=== PATIENT | male | born 1970 | race Caucasian/White ===

== ENCOUNTER → 2021-05-17 | Day surgery (SDC) | payer OTHER ==
[~2021-05-17] MED LIST: ADVIL LIQUI-GE200 MG PO; AZELASTIN-FLUTI23 GM; EPIPEN 2-P0.3 MG/0.3 INJ; FISH OIL 1,2001 EACH PO; FLOMAX 0.4 MG0.4 MG PO; OSTEO BI-FLEX1 EACH PO; SAW PALMETTO PO; TUMERIC PO; VITAMIN A2400 MCG PO; VITAMIN D325 MCG PO
== END | disposition home or self-care (01) ==
LOC: OR 07:30
DX: N40.1 Benign prostatic hyperplasia with lower urinary tract symptoms (principal); R35.1 Nocturia; R39.12 Poor urinary stream; R39.16 Straining to void; E78.5 Hyperlipidemia, unspecified; Z87.891 Personal history of nicotine dependence; Z20.822 Contact with and (suspected) exposure to COVID-19
CPT/HCPCS: J7040; U0002

== ENCOUNTER → 2021-08-24 | Outpatient (CLI) | payer OTHER | LOC: KOH-I 10:30 | DX: S90.852D Superficial foreign body, left foot, subsequent encounter (principal) | CPT/HCPCS: 73630 ==

== ENCOUNTER → 2021-10-19 | Outpatient (CLI) | payer OTHER | LOC: KOH-I 09:09 | DX: S91.342D Puncture wound with foreign body, left foot, subsequent encounter (principal); L08.89 Other specified local infections of the skin and subcutaneous tissue; M79.672 Pain in left foot | CPT/HCPCS: 73718 ==